=== PATIENT | male | born 1990 | race African-American/Black ===

== ENCOUNTER 2025-06-09 08:50 | Inpatient (IN) | payer OTHER ==
[~2025-06-09] VITALS: Ht 188 cm; Wt 78.2 kg
[2025-06-09 10:17] LABS: PLATELET COUNT (AUTO) 504 K/uL (150-450); RED BLOOD CELL COUNT(AUTO) 5.07 MIL/uL (4.50-5.90); RED CELL DISTRIBUTION WIDTH 12.8 % (11.5-14.5); WHITE BLOOD COUNT (AUTO) 16.4 K/uL (4.5-11.0)
[2025-06-09 10:27] LABS: CALCIUM, TOTAL 9.5 mg/dL (8.8-10.5); CREATININE 1.02 mg/dL (0.60-1.30); GLOMERULAR FILTR. RATE CALC > 60 mL/min (>60); GLUCOSE,RANDOM 95 mg/dL (70-110); SODIUM SERUM 133 mmol/L (136-145); UREA NITROGEN, BLOOD 21 mg/dL (7-18)
[2025-06-09 10:36] LABS: ASPARTATE AMINOTRANSFERASE 19.0 U/L (15-37); TOTAL PROTEIN, SERUM 8.3 g/dL (6.4-8.2)
[2025-06-09] MEDS: PIPERACILLIN/TAZO 3.375 GM/D5W 50 ML IV ONE (10:53)
[2025-06-09] MEDS: LIDOCAINE 1% 10 ML VIAL SQ ONE (10:54)
[2025-06-09] MEDS: VANCOMYCIN 1.5 GM/WATER(PEG) 300 ML IV ONE (12:33)
[2025-06-09] MEDS ORDERED: ACETAMINOPHEN 325 MG TABLET PO PRN (13:30)
[2025-06-09] MEDS ORDERED: BISACODYL 10 MG RECTAL RECTAL SUPPOSITORY PR PRN (13:30)
[2025-06-09] MEDS ORDERED: HYDROCODONE/ACETAMINOPHEN 5-325 MG TABLET PO PRN (13:30)
[2025-06-09] MEDS ORDERED: MAGNESIUM HYDROXIDE SUSPENSION 30 ML UDCUP PO PRN (13:30)
[2025-06-09] MEDS ORDERED: ONDANSETRON HCL 4 MG/2 ML VIAL IVP PRN (13:30)
[2025-06-09] MEDS ORDERED: VANCOMYCIN 1.25 GM/WATER(PEG) 250 ML IV SCH (16:00)
[2025-06-09] MEDS ORDERED: SODIUM CHLORIDE 0.9% 500 ML IV ONE (17:00)
[2025-06-09] MEDS: HEPARIN SODIUM,PORCINE 5,000 UNITS/ML VIAL SQ SCH (17:29)
[2025-06-09] MEDS: MORPHINE SULFATE 4 MG/ML SYRINGE IVP PRN (17:30)
[2025-06-09] MEDS: VANCOMYCIN 1GM/WATER(PEG/NADA) 200 ML IV ONE (17:30)
[2025-06-09 17:45] VITALS: BP 154/84; PULSE 85; RESP 20; TEMP 98.2; O2SAT 96
[2025-06-09 19:49] VITALS: BP 146/90; PULSE 91; RESP 20; TEMP 97.7; O2SAT 98
[2025-06-09] MEDS: DOCUSATE SODIUM 100 MG CAPSULE PO SCH (20:51)
[2025-06-09] MEDS: VANCOMYCIN 1.25 GM/WATER(PEG) 250 ML IV SCH (23:29)
[2025-06-10] MEDS ORDERED: VANCOMYCIN 1.25 GM/WATER(PEG) 250 ML IV SCH
[2025-06-10 04:15] VITALS: BP 157/97; PULSE 89; RESP 18; TEMP 98.4; O2SAT 100
[2025-06-10 05:08] LABS: HEPATITIS C AB (EIA) Non Reactive (Non Reactive)
[2025-06-10 07:30] LABS: CALCIUM, TOTAL 8.7 mg/dL (8.8-10.5); CREATININE 0.89 mg/dL (0.60-1.30); GLOMERULAR FILTR. RATE CALC > 60 mL/min (>60); GLUCOSE,RANDOM 118 mg/dL (70-110); SODIUM SERUM 134 mmol/L (136-145); UREA NITROGEN, BLOOD 18 mg/dL (7-18)
[2025-06-10 08:00] VITALS: BP 121/64; PULSE 88; RESP 20; TEMP 97.9; O2SAT 98
[2025-06-10] MEDS: PANTOPRAZOLE SODIUM 40 MG DR TABLET PO SCH (09:19)
[2025-06-10 20:44] VITALS: BP 131/78; PULSE 79; RESP 18; TEMP 97.9; O2SAT 99
[2025-06-10] MEDS: ZOLPIDEM TARTRATE 5 MG TABLET PO PRN (22:00)
[2025-06-11 06:53] LABS: CALCIUM, TOTAL 9.1 mg/dL (8.8-10.5); CREATININE 0.75 mg/dL (0.60-1.30); GLOMERULAR FILTR. RATE CALC > 60 mL/min (>60); GLUCOSE,RANDOM 99 mg/dL (70-110); SODIUM SERUM 137 mmol/L (136-145); UREA NITROGEN, BLOOD 18 mg/dL (7-18)
[2025-06-11 07:07] LABS: PLATELET COUNT (AUTO) 439 K/uL (150-450); RED BLOOD CELL COUNT(AUTO) 4.22 MIL/uL (4.50-5.90); RED CELL DISTRIBUTION WIDTH 12.6 % (11.5-14.5); WHITE BLOOD COUNT (AUTO) 7.7 K/uL (4.5-11.0)
[2025-06-11 08:49] VITALS: BP 121/84; PULSE 82; RESP 18; TEMP 97.8; O2SAT 100
[2025-06-11] MEDS: PIPERACILLIN/TAZO 3.375 GM/D5W 50 ML IV SCH (13:00)
[2025-06-11] MEDS ORDERED: GADOTERATE MEGLUMINE 10 MMOL/20 ML VIAL IVP ONE (14:09)
[2025-06-11] MEDS: VANCOMYCIN 1.5 GM/WATER(PEG) 300 ML IV SCH (17:32)
[2025-06-11 20:41] VITALS: BP 125/87; PULSE 72; RESP 18; TEMP 97.5; O2SAT 98
[2025-06-11] MEDS: RINGERS SOLUTION,LACTATED 1,000 ML IV ONE (22:31)
[2025-06-12 06:29] LABS: PLATELET COUNT (AUTO) 455 K/uL (150-450); RED BLOOD CELL COUNT(AUTO) 4.06 MIL/uL (4.50-5.90); RED CELL DISTRIBUTION WIDTH 12.8 % (11.5-14.5); WHITE BLOOD COUNT (AUTO) 7.6 K/uL (4.5-11.0)
[2025-06-12 06:46] LABS: CALCIUM, TOTAL 8.6 mg/dL (8.8-10.5); CREATININE 0.85 mg/dL (0.60-1.30); GLOMERULAR FILTR. RATE CALC > 60 mL/min (>60); GLUCOSE,RANDOM 90 mg/dL (70-110); SODIUM SERUM 138 mmol/L (136-145); UREA NITROGEN, BLOOD 15 mg/dL (7-18)
[2025-06-12 08:08] VITALS: BP 130/82; PULSE 57; RESP 18; TEMP 97.3; O2SAT 100
[2025-06-12 19:35] VITALS: BP 115/79; PULSE 70; RESP 17; TEMP 97.9; O2SAT 98
[2025-06-13 04:35] VITALS: BP 125/69; PULSE 60; RESP 17; TEMP 97.5; O2SAT 97
[2025-06-13 07:07] LABS: PLATELET COUNT (AUTO) 473 K/uL (150-450); RED BLOOD CELL COUNT(AUTO) 4.11 MIL/uL (4.50-5.90); RED CELL DISTRIBUTION WIDTH 12.6 % (11.5-14.5); WHITE BLOOD COUNT (AUTO) 7.0 K/uL (4.5-11.0)
[2025-06-13 07:12] LABS: CALCIUM, TOTAL 8.3 mg/dL (8.8-10.5); CREATININE 0.85 mg/dL (0.60-1.30); GLOMERULAR FILTR. RATE CALC > 60 mL/min (>60); GLUCOSE,RANDOM 106 mg/dL (70-110); SODIUM SERUM 139 mmol/L (136-145); UREA NITROGEN, BLOOD 15 mg/dL (7-18)
[2025-06-13 08:00] VITALS: BP 124/75; PULSE 64; RESP 20; TEMP 98.4; O2SAT 100
[2025-06-13] MEDS ORDERED: SODIUM CHLORIDE 0.9% 500 ML IV ONE (09:06)
[2025-06-13] MEDS ORDERED: LINE600T14 PO (12:52)
[2025-06-13] MEDS ORDERED: CEPH-558 PO (12:52)
[2025-06-13] MEDS ORDERED: SULF1TAB94 PO (17:48)
[2025-06-13] MEDS: CHLORHEXIDINE GLUCONATE 4% 118 ML TOPICAL LIQUID TP ONE (18:38)
[2025-06-14] MEDS ORDERED: VANCOMYCIN 1.25 GM/WATER(PEG) 250 ML IV SCH
== END 2025-06-13 19:04 | DRG 603 ==
LOC: EMS 08:52 → EDH 12:00 → 6N 15:15
PROVIDERS: ADMIT Internal Medicine; ATTEND Internal Medicine
DX: L03.012 Cellulitis of left finger (principal); L02.512 Cutaneous abscess of left hand; M65.842 Other synovitis and tenosynovitis, left hand; F10.10 Alcohol abuse, uncomplicated; F17.200 Nicotine dependence, unspecified, uncomplicated; F15.90 Other stimulant use, unspecified, uncomplicated
CPT/HCPCS: 71045; 73220; 80048; 80076; 80202; 85025; 86803; 87040; 87340; 93005; 96365; 96366; 96367; 99285; J1644; J2270; J2543; J3490; J7040; J7120; 36415-L1; 36415-TC